=== PATIENT | male | born 1985 | race Caucasian/White ===

== ENCOUNTER 2021-12-14 15:15 | Emergency (ER) | payer OTHER ==
[2021-12-14 17:48] LABS: BASOPHIL 0.8 % (0-2); HCT 51.8 % (42.0-52.0); HGB 17.5 g/dl (13.2-18.0); LYMPHOCYTE 16.3 % (15-48); MCH 28.6 pg (25.0-31.0); MCHC 33.8 g/dL (32.0-36.0); MCV 84.8 fL (78.0-100.0); MPV 11.1 fL (6.0-9.5); NEUTROPHIL 71.2 % (41-80); NRBC 0; PLT 306 K/uL (150-400); RBC 6.11 M/uL (4.70-6.00); WBC 16.9 K/uL (4.0-10.5)
[2021-12-14 17:50] LABS: BILIRUBIN NEGATIVE (NEGATIVE); BLOOD NEGATIVE Ery/uL (NEGATIVE); CLARITY CLEAR (CLEAR); COLOR YELLOW (YELLOW); GLUCOSE (U) NORMAL (NORMAL); LEUKOCYTES NEGATIVE Leu/uL (NEGATIVE); NITRITE NEGATIVE (NEGATIVE); PROTEIN NEGATIVE (NEGATIVE); SPECIFIC GRAVITY >=1.030 (1.001-1.030); UROBILINOGEN 0.2 mg/dL (0.2-1.0); pH 5.5 (5.0-9.0)
[2021-12-14 19:15] LABS: BILIRUBIN - TOTAL 0.4 mg/dL (0.2-1.0); BUN/CREAT RATIO (CALC) 14.3 RATIO; CREATININE 0.91 mg/dL (0.67-1.17); GLOBULIN (CALCULATION) 4.2 g/dL; POTASSIUM 4.1 mmol/L (3.5-5.1); TOTAL PROTEIN 8.2 g/dL (6.4-8.2)
[2021-12-14 19:37] LABS: LACTIC ACID 0.9 mmol/L (0.4-1.9)
[2021-12-14] MEDS ORDERED: NORCO 5-325 TA1 EACH PO (20:08)
[2021-12-14] MEDS ORDERED: FLOMAX0.4 MG PO (20:08)
== END 2021-12-14 20:18 | disposition home or self-care (01) ==
LOC: FER 15:15
PROVIDERS: Nurse Practitioner Family
DX: N20.0 Calculus of kidney (principal); I10 Essential (primary) hypertension; E11.9 Type 2 diabetes mellitus without complications; Z88.8 Allergy status to other drugs, medicaments and biological substances; Z79.899 Other long term (current) drug therapy; Z28.310 Unvaccinated for COVID-19
CPT/HCPCS: 36415; 80053; 81003; 83605; 85025; 99284